=== PATIENT | male | born 1990 ===

== ENCOUNTER 2016-12-27 02:25 | Emergency (ER) | payer SELFPAY ==
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
[2016-12-27 05:40] VITALS: BP 120/73; PULSE 75; RESP 20; TEMP 98.8; O2SAT 96
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
== END 2016-12-27 05:15 | disposition home or self-care (01) ==
LOC: C.ER 02:25
DX: S62.231A Other displaced fracture of base of first metacarpal bone, right hand, initial encounter for closed fracture (principal); Y04.0XXA Assault by unarmed brawl or fight, initial encounter